=== PATIENT | female | born 1995 | race Two or more races ===

== ENCOUNTER 2025-03-15 15:16 | Emergency (ER) | payer MEDICAID ==
[~2025-03-15] VITALS: Ht 154.9 cm; Wt 78.0 kg
--- NOTE | 2025-03-15 17:58 | ED.PDOC ---
GERMAN TEACHER HPI Comments This is a 29 year old female presenting to the ED with chief complaint of vaginal bleeding during . Patient reports that she has been experience vaginal spotting over the past 2 days, getting heavier over time with associated mild abdominal pain. Patient relays that she is currently 6 weeks . Patient is . Patient denies any dizziness, chest pain, N/V/D, dysuria, or vaginal discharge. Vital signs were stable. Chief Complaint: Vaginal Bleed Time Seen by MD: 17:56 Reviewed Notes: Nurses Notes, Medications, Allergies Allergies: Coded Allergies: NO KNOWN ALLERGIES (Unverified , 03/15/25) Information Source: Patient Mode of Arrival: Ambulatory Timing: Days Prehospital treatment: None Severity: Moderate Vaginal Discharge: None Vaginal Lesions: None Bleeding Quality: Bright Red Onset Of Mass/Bleeding: Spontaneous Sexual Activity: Last Consensual [place]: Unknown Control: None History of: Current Associated Signs and Symptoms: Vaginal Bleeding, Abdominal Pain Past Medical History PAST MEDICAL HISTORY: Denies Surgical History: Denies all surgeries ASSOCIATE PROFESSOR OF AUTOMATION History: No Pertinent ASSOCIATE PROFESSOR OF AUTOMATION History Family History Family History: Reviewed,noncontributory to illness Social History Smoker: Non-Smoker Alcohol: Denies ETOH Use Drugs: Denies Drug Use Lives In: Home Constitutional: denies: chills, diaphoresis, fatigue, fever, malaise, sweats, weakness, others EENTM: denies: blurred vision, double vision, ear bleeding, ear discharge, ear drainage, ear pain, ear ringing, eye pain, eye redness, hearing loss, mouth pain, mouth swelling, nasal discharge, nose bleeding, nose congestion, nose pain, photophobia, tearing, throat pain, throat swelling, voice changes, others Respiratory: denies: cough, hemoptysis, orthopnea, SOB at rest, shortness of breath, SOB with excertion, stridor, wheezing, others Cardiovascular: denies: chest pain, dizzy spells, diaphoresis, Dyspnea on exertion, edema, irregular heart beat, left arm pain, lightheadedness, palpitations, PND, syncope, others Gastrointestinal: reports: abdominal pain; denies: abdomen distended, blood streaked bowels, constipated, diarrhea, dysphagia, difficulty swallowing, hematemesis, melena, nausea, poor appetite, poor fluid intake, rectal bleeding, rectal pain, vomiting, others Genitourinary: reports: abnormal vagina bleeding; denies: burning, dyspareunia, dysuria, flank pain, frequency, hematuria, incontinence, pain, , vagina discharge, urgency, others Neurological: denies: dizziness, fainting, headache, left sided numbness, left sided weakness, numbness, paresthesia, pre-existing deficit, right sided numbness, right sided weakness, seizure, speech problems, tingling, tremors, weakness, others Musculoskeletal: denies: back pain, gout, joint pain, joint swelling, muscle pain, muscle stiffness, neck pain, others Integumetry: denies: bruises, change in color, change in hair/nails, dryness, laceration, lesions, lumps, rash, wounds, others Allergic/Immunocompromised: denies: Difficulty Healing, Frequent Infections, Hives, Itching, others Hematologic/Lymphatic: denies: anemia, blood clots, easy bleeding, easy bruisi ng, swollen glands, others Endocrine: denies: excessive hunger, excessive sweating, excessive thirst, exce ssive urination, flushing, intolerance to cold, intolerance to heat, unexplained weight gain, unexplained weight loss, others Psychiatric: denies: anxiety, bipolar disorder, depression, hopeless, panic disorder, schizophrenia, sleepless, suicidal, others All Other Systems: Reviewed and Negative Physical Exam General Appearance: Mild Distress (Patient had some mild distress. Patient declined the need for any pain medication while at the facility.), Normal HEENT: Normal ENT Inspection, Pharynx Normal, TMs Normal Neck: Full Range of Motion, Non-Tender, Normal, Normal Inspection Respiratory: Chest Non-Tender, Lungs Clear, No Accessory Muscle Use, No Respiratory Distress, Normal Breath Sounds Cardiovascular: No Edema, No JVD, No Murmur, No Gallop, Normal Peripheral Pulses, Regular Rate/Rhythm Breast Exam: Deferred Gastrointestinal: No Pulsatile Mass, Normal Bowel Sounds, Soft, Other (Nonspecific bilateral lower abdominal/pelvic tenderness. No signs of trauma.) Genitalia: Deferred Pelvic: Deferred Rectal: Deferred Extremities: No calf tenderness, Normal capillary refill, Normal inspection, Normal range of motion, Non-tender, No pedal edema Musculoskeletal : Apperance: Normal Neurologic: Alert, territory business manager II-XII nml as Tested, No Motor Deficits, Normal Affect, Normal Mood, No Sensory Deficits Cerebellar Function: Normal Reflexes: Normal Skin: Dry, Normal Color, Warm Lymphatic: No Adenopathy Was a procedure done? Was a procedure done?: No Differential Diagnosis (ASSOCIATE PROFESSOR OF AUTOMATION) Vaginal Bleeding: - Complete, - Inevitable, - Missed, - Threatened, Abruptio Placentae, Other (Vaginal bleeding in 1st trimester) X-Ray, Labs, Meds, VS Vital Signs Date Time Temp Pulse Resp B/P (MAP) Pulse Ox O2 Delivery O2 Flow Rate FiO2 03/15/25 15:18 98.4 80 16 139/79 99 98.4 Lab Test 03/15/25 16:38 Range/Units Beta HCG, Quantitative 52081.7 H 1.5-4.2 mIU/mL X-Ray, Labs, Meds, VS Comment All studies performed the ED were evaluated by me personally. [place] [id number]. Ultrasound confirmed a six week one day viable with heart tones noted. Advised patient follow up with the business loan processor for continued evaluation. Time of 1ST Reevaluation: 18:48 Reevaluation 1ST: Improved Consultation: PCP, manager critical care Patient Education/Counseling: Diagnosis, Treatment Family Education/Counseling: Diagnosis, Treatment, No Family Present Departure 1 Departure Time of Disposition: 18:48 Impression: Primary Impression: Vaginal bleeding before 22 weeks gestation Disposition: HOME / SELF CARE / HOMELESS Condition: Stable Additional Instructions: Patient[place]hCG [place] [address] today. Ultrasound confirmed a live intrauterine at six weeks one day. Advised continue follow up with business loan processor. Discharged With: Self, Friend Critical Care Note Critical Care Time?: No Stability Stability form required: No Heart Score Heart Score: Heart Score Response (Comments) Value History N/A 0 EKG N/A 0 Age N/A 0 Risk Factors N/A 0 Troponin N/A 0 Total 0 I personally scribed for FABIENNE FARLEY PAC ([email or web address]) on 03/15/25 at 17:58. Electronically submitted by Mahesh Benedict ([email or web address]). FABIENNE FARLEY PAC Mar 15, 2025 17:58
--- NOTE | 2025-03-15 18:24 | DVH ---
INDICATION: Vaginal bleed TECHNIQUE: Multiple real-time grayscale transabdominal sonographic images along with color and duplex Doppler of the uterus and ovaries were obtained. COMPARISON: None FINDINGS: The uterus measures 10.12 x 5.46 x 5.97 cm. Uterine volume is 172.9 mL. The endometrial str ipe contains a gestational sac holding a pole. The right ovary measures 3.1 x 2.3 x 1.9 cm. Right ovarian volume is 6.9 cc The left ovary measures 2.3 x 2.1 x 2.5 cm. Left ovarian volume is 6.3 cc Subsequent color and duplex Doppler interrogation of the ovaries demonstrated symmetric vascular flow to both ovaries, though this does not exclude the possibility of torsion due to the dual blood suppl y. Gestational sac measures 1.5 cm consistent with 5 weeks 6 days. Yolk sac is visualized. Erhard-rump length measures 0.53 cm consistent with 6 weeks 2 days. heart rate is 125 beats per minute. JUSTICE 11/07/2025 IMPRESSION: 1. Grossly unremarkable pelvic ultrasound. 2. Single living intrauterine with a gestational age of 6 weeks 1 day ; JUSTICE 11/07/2025 3. FHR: 125 beats per minute
[2025-03-15 19:15] VITALS: BP 134/77; PULSE 81; RESP 16; TEMP 98; O2SAT 100
== END 2025-03-15 19:22 | disposition home or self-care (01) ==
LOC: ER 15:23
DX: O20.0 Threatened abortion (principal); Z3A.01 Less than 8 weeks gestation of pregnancy
CPT/HCPCS: 36415; 76801; 84702